=== PATIENT | female | born 1980 | race African-American/Black ===

== ENCOUNTER 2021-03-17 23:56 | Emergency (ER) | payer OTHER ==
[~2021-03-17] VITALS: Ht 165.1 cm; Wt 108.9 kg
[2021-03-17 23:58] VITALS: BP 107/74
[2021-03-18 02:59] LABS: HEMATOCRIT 34.4 % (37.0-47.0); HEMOGLOBIN 11.3 gm/dL (12.0-15.0); MCH 26.9 pg (26.0-34.0); MCHC 32.8 g/dL (28.0-37.0); MCV 81.8 fL (80.0-100.0); RBC 4.2 mil/uL (4.20-5.00); RDW 16.4 % (10.5-14.5); WBC 9.2 thou/uL (4.0-11.0)
[2021-03-18 03:08] LABS: ANION GAP 10 mmol/L (7-16); BUN 24 mg/dL (7-18); CALCIUM 8.8 mg/dL (8.5-10.1); CHLORIDE 107 mmol/L (98-107); CO2 24 mmol/L (21-32); CREATININE 0.9 mg/dL (0.6-1.0); GLUCOSE 94 mg/dL (74-106); POTASSIUM 3.6 mmol/L (3.5-5.1); SODIUM 141 mmol/L (136-145)
[2021-03-18 03:17] LABS: ALBUMIN 3.5 g/dL (3.4-5.0); SGOT 17 U/L (15-37); SGPT 27 U/L (14-59); TOTAL BILIRUBIN 0.1 mg/dL (0.2-1.0); TOTAL PROTEIN 7.4 g/dL (6.4-8.2); TROPONIN-I <0.06 ng/mL (<0.06)
--- NOTE | 2021-03-18 07:23 | EKG ---
[place] [address] [facility] [employer] [address] ELECTROCARDIOGRAM REPORT Name: ANIYAH WHEATLEY [id number] Admission: 03/17/21 Attend Phys: Discharge: 03/18/21 Date of : 84 Report #: [id number] [facility] ED Test Date: 2021-03-18 Test Time: 00:03:26 Pat Name: ANIYAH WHEATLEY Department: Room: Gender: F Electrical Lineman: JUSTINA : 1980 Requested By: Rosemary Saweyr Order Number: [id number] MD: Filippo Ibrahim Measurements Intervals [place] Rate: 79 P: 40 MS: 162 QRS: 28 QRSD: 95 T: 33 QT: 392 QTc: 450 Interpretive Statements Sinus rhythm Low voltage, precordial leads No previous ECG available for comparison Electronically Signed On 03-18-2021 7:23:13 CDT by Filippo Ibrahim [email or web address] <ELECTRONICALLY SIGNED> By: Filippo Ibrahim MD, [facility] 03/18/21 0723 0003 0003 Filippo Ibrahim MD, FACC /EPI
== END 2021-03-18 04:01 | disposition home or self-care (01) ==
LOC: ER 23:56
PROVIDERS: Student in an Organized Health Care Education/Training Program
DX: R07.89 Other chest pain (principal); R05 Cough; Z88.0 Allergy status to penicillin; Z91.040 Latex allergy status